=== PATIENT | female | born 1995 | race Caucasian/White ===

== ENCOUNTER 2020-03-16 09:12 | Emergency (ER) | payer MEDICAID, SELFPAY ==
[~2020-03-16] VITALS: Ht 154.9 cm; Wt 103.0 kg
[2020-03-16 09:12] VITALS: BP_SYST 136
== END 2020-03-16 10:04 | disposition home or self-care (01) ==
LOC: SED 09:12
DX: J03.90 Acute tonsillitis, unspecified (principal); Z88.1 Allergy status to other antibiotic agents
CPT/HCPCS: 99283